=== PATIENT | male | born 1960 | race Caucasian/White ===

== ENCOUNTER → 2021-05-19 | Outpatient (CLI) | payer OTHER ==
--- NOTE | 2021-05-29 00:32 | PFR/MVV ---
[facility] [place] [address] PULMONARY FUNCTION MVV/REPORT Name: MARIAN FREY Room #: REG [facility]#: [id number] Admission: 05/19/21 Attend Phys: Physician not on staff Discharge: Date of : 56 Report #: [id number] THIS REPORT FOR: //name// COPIES FOR: AGE: 61 SEX/RACE: M/C >> SPIROMETRY: (BTPS) Height: 67 in cm Weight: 194 lbs kg Exam Date: 05/19/21 PRE-RX POST-RX PRED BEST %PRED BEST %PRED %CHG FVC LITERS . 4.10 . 3.33 . 81 . 3.53 . 86 . 6 FEV1 LITERS . 2.89 . 2.50 . 87 . 2.68 . 93 . 7 FEV1/FVC % . 71 . 75 . 106 . 76 . 107 . 1 LZO16-28% L/Sec . 2.83 . 2.02 . 72 . 2.35 . 83 . 16 PEF L/SEC . 7.79 . 5.87 . 75 . 5.22 . 67 . -11 FEF50/FIF50 UNITLESS . 3.78 . 3.24 . 86 . 3.52 . 93 . 9 MVV L/Min . 126 . 28 . 22 f 1/Min . . . >> LUNG VOLUMES: (BTPS) PRE-RX POST-RX PRED AVG %PRED AVG %PRED %CHG VC Liters . 4.10 . 3.39 . 83 . . . TLC Liters . 5.90 . 5.33 . 90 . . . RV Liters . 2.22 . 1.94 . 87 . . . RV/TLC % . 38 . 36 . 95 . . . FRC PL Liters . 3.12 . 2.39 . 77 . . . FRC N2 Liters . 3.12 . . . . . ERV Liters . 1.39 . 0.37 . 27 . . . IC Liters . 2.77 . 2.94 . 106 . . . >> DIFFUSION: DLCO ml/Min/mmHg . 22.7 . 18.0 . 79 . . . DL Meredith ml/Min/mmHg . 22.7 . 18.0 . 79 . . . DLCO/VA ml/Min/mmHg . 3.69 . 3.71 . 100 . . . VA Liters . 6.50 . 4.84 . 74 . . . [facility] [address] [place] [address] PULMONARY FUNCTION MVV/REPORT Name: MARIAN FREY Room #: REG [facility]#: [id number] Admission: 05/19/21 Attend Phys: Physician not on staff Discharge: Date of : 56 Report #: [id number] COMMENTS: COMMENTS: >> RESISTANCE: PRE-RX PRED AVG %PRED Raw Total cmH20/L/Sec . . 4.13 . Raw Insp cmH20/L/Sec . . 3.11 . Raw Exp cmH20/L/Sec . . 3.62 . Raw cmH20/L/Sec . 1.49 . 3.61 . 242 Gaw L/Sec/cmH20 . 0.749 . 0.277 . 37 sRaw cmH20 Sec . 4.66 . 13.51 . 290 sGaw l/cmH20 Sec . 0.215 . 0.074 . 35 Vtq Liters . . 3.74 . # = OUTSIDE 95% CONFIDENCE INTERVAL CALIBRATION: PRED: 3.00 ACTUAL: EXP 3.01 INSP 3.02 [facility]-10-06 [place] [id number] >> INTERPRETATION/IMPRESSION: PULMONARY FUNCTION STUDY SPIROMETRY: FEV1 is 2.50 liters (87%), FVC is 3.33 liters (81%), FEV1/FVC ratio is 75%. There is no significant response to bronchodilator therapy. Total lung capacity is 5.33 liters (90%), FVC is 3.39 liters (83% predicted). RV is 1.94 liters (87% predicted). Diffusing capacity is 79%. IMPRESSION: Pulmonary function studies are consistent with normal pulmonary flow. <ELECTRONICALLY SIGNED> By: Son Murphy MD 05/29/21 0032 Son Murphy MD /nt
== END ==
LOC: PUL 09:53
DX: Z20.822 Contact with and (suspected) exposure to COVID-19 (principal); I25.10 Atherosclerotic heart disease of native coronary artery without angina pectoris; I25.76 Atherosclerosis of bypass graft of coronary artery of transplanted heart with angina pectoris; I25.5 Ischemic cardiomyopathy; I48.92 Unspecified atrial flutter; I10 Essential (primary) hypertension